=== PATIENT | female | born 1970 | race Caucasian/White ===

== ENCOUNTER 2019-03-17 09:10 | Emergency (ER) | payer OTHER ==
[2019-03-17 09:51] LABS: Absolute Monocytes 0.5 K/uL (0.1-1.3); Absolute Neutrophil 5.7 K/uL (1.8-8.0); Basophils % 0.7 % (0-1.3); Eosinophils % 4.7 % (0-4.4); Hematocrit 36.7 % (36.0-45.0); Lymphocytes % 30.9 % (15.3-44.8); MPV 8.8 fL (7.6-11.3); Monocytes % 5.1 % (3.3-12.3); RBC Red Blood Cell Count 4.01 M/uL (3.86-4.86)
[2019-03-17 10:45] LABS: BUN Blood Urea Nitrogen 11 mg/dL (7-18); Bicarbonate 22 mmol/L (21-32); Glucose Level 92 mg/dL (74-106); Magnesium 1.8 mg/dL (1.8-2.4); NT PRO-BNP 47 pg/mL (<125); Potassium 3.4 mmol/L (3.5-5.1); Sodium Level 139 mmol/L (136-145); Troponin (Emerg Dept Use Only) < 0.02 ng/mL (0.0-0.045)
--- NOTE | 2019-03-17 10:59 | RAD REPORT ---
EXAM DESCRIPTION: RAD - Chest Single View - 03/17/2019 10:29 am CLINICAL HISTORY: DYSPNEA Chest pain. COMPARISON: CHEST SINGLE VIEW dated 01/13/2014; CHEST PA AND LAT 2 VIEW dated 05/19/2013; CHEST SINGLE VIEW dated 10/24/2011 FINDINGS: Portable technique limits examination quality. The lungs are grossly clear. The heart is normal in size. No displaced fractures. IMPRESSION: No acute intrathoracic process suspected.
--- NOTE | 2019-03-17 11:10 | ER ---
Nurse's Notes [facility] Name: Kaley Gaines Age: 48 yrs Sex: Female : 1970 Arrival Date: 03/17/2019 Time: 09:13 Bed 17 Private MD: Dimple Drummond Diagnosis: Dyspnea Presentation: 03/17 09:13 Presenting complaint: Patient states: was diagnosed with sinus infection at urgent care aa5 and completed Azithromycin on Saturday but SOB has not improved. Pt also reports mid-sternal chest pain and to right lateral aspect of chest when taking a deep breath. Pt reports cough on and off. 09:13 Transition of care: patient was not received from another setting of care. aa5 09:13 Method Of Arrival: Ambulatory aa 09:13 Onset of symptoms was February 2019. Risk Assessment: Do you want to hurt yourself or aa5 someone else? Patient reports no desire to harm self or others. Initial Sepsis Screen: Does the patient meet any 2 criteria? No. Patient's initial sepsis screen is negative. Does the patient have a suspected source of infection? No. Patient's initial sepsis screen is negative. Care prior to arrival: None. 09:13 Acuity: YVONNE 3 aa5 Triage Assessment: 09:35 General: Appears in no apparent distress. uncomfortable, Behavior is calm, cooperative, hj appropriate for age. Respiratory: Reports shortness of breath Onset: The symptoms/episode began/occurred the patient has mild shortness of breath. 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 - Social history:: Smoking status: Patient/guardian denies using tobacco. - Ebola Screening: : No symptoms or risks identified at this time. Screenin:30 Abuse screen: Denies threats or abuse. Denies injuries from another. Nutritional hj screening: No deficits noted. Tuberculosis screening: No symptoms or risk factors identified. Fall Risk None identified. Assessment: 09:35 Pain: Complains of pain in chest. Cardiovascular: Rhythm is regular. Respiratory: hj Airway is patent Respiratory effort is even, unlabored, Respiratory pattern is regular, symmetrical, Breath sounds are clear. 09:35 General: Appears in no apparent distress. uncomfortable, Behavior is calm, cooperative, hj appropriate for age. Neuro: Level of Consciousness is awake, alert, obeys commands, Oriented to person, place, time, situation, Appropriate for age. GI: No signs and/or symptoms were reported involving the gastrointestinal system. : No signs and/or symptoms were reported regarding the genitourinary system. EENT: No signs and/or symptoms were reported regarding the EENT system. Derm: No signs and/or symptoms reported regarding the dermatologic system. Musculoskeletal: No signs and/or symptoms reported regarding the musculoskeletal system. 11:04 Reassessment: Patient and/or family updated on plan of care and expected duration. Pain hj level reassessed. Patient is alert, oriented x 3, equal unlabored respirations, skin warm/dry/pink. awaiting results and POC;. 11:22 Reassessment: for D/C;. hj Vital Signs: 09:15 BP 152 / 87; Pulse 96; Resp 16 S; Temp 98.3(O); Pulse Ox 100% on R/A; Weight 94.8 kg aa5 (R); Height 5 ft. 6 in. (167.64 cm) (R); Pain 6/10; 10:30 BP 128 / 67; Pulse 89; Resp 18; Pulse Ox 100% on R/A; hj 09:15 Body Mass Index 33.73 (94.80 kg, 167.64 cm) aa5 ED Course: 09:13 Patient arrived in ED. mr 09:13 Dimple Drummond is Private Physician. mr 09:13 Arm band placed on Patient placed in an exam room, on a stretcher. aa5 09:15 [facility] kb 09:15 Giorgi Peoples MD is Attending Physician. kb 09:20 Rich Vinson RN is Primary Nurse. hj 09:27 Triage completed. aa5 09:35 Patient has correct armband on for positive identification. Placed in gown. Bed in low hj position. Call light in reach. Side rails up X 1. 09:35 Initial lab(s) drawn, by me, sent to lab. Inserted saline lock: 22 gauge in left hj antecubital area, using aseptic technique. Blood collected. 10:29 XRAY Chest (1 view) In Process Unspecified. EDMS 11:22 No provider procedures requiring assistance completed. IV discontinued, intact, hj bleeding controlled, No redness/swelling at site. Pressure dressing applied. Administered Medications: 11:05 Drug: Albuterol 2.5 mg Route: Inhalation; hj 11:22 Follow up: Response: No adverse reaction; Wheezing diminished hj Outcome: 11:09 Discharge ordered by MD. baca 11:23 Discharged to home ambulatory. 11:23 Condition: stable 11:23 Discharge instructions given to patient, Instructed on discharge instructions, follow up and referral plans. medication usage, Demonstrated understanding of instructions, follow-up care, medications, Prescriptions given X 1. 11:27 Patient left the ED. Signatures: Dispatcher [employer] EDMS Kary Hernandez, MARILINC INFORMATION TECHNOLOGY INSTRUCTOR-Emelyn Clayton Perez, Angela, RN RN aa5 Rich Vinson RN RN hj
--- NOTE | 2019-03-17 11:10 | EDPHYS ---
Physician Documentation [facility] Name: Kaley Gaines Age: 48 yrs Sex: Female : 1970 Arrival Date: 03/17/2019 Time: 09:13 Bed 17 Private MD: Dimple Drummond ED Physician Giorgi Peoples HPI: 03/17 11:06 This 48 yrs old Female presents to ER via Ambulatory with complaints of kb Shortness Of Breath. 11:07 The patient has shortness of breath while exercising. Onset: The symptoms/episode kb began/occurred 10 day(s) ago. Duration: The symptoms are intermittent. The patient's shortness of breath is aggravated by exertion. Associated signs and symptoms: The patient has no apparent associated signs or symptoms. Severity of symptoms: At their worst the symptoms were moderate in the emergency department the symptoms are unchanged. The patient has not experienced similar symptoms in the past. The patient has been recently seen at an urgent care, last week, for similar complaints, was given a prescription for antibiotics. Pt reports shortness of breath that started 10 days ago. Seen at and given zithromax. Completed course, but still having symptoms. States she was at PT, riding a bike and got winded after 7 minutes so she came in.. 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 - Social history:: Smoking status: Patient/guardian denies using tobacco. - Ebola Screening: : No symptoms or risks identified at this time. ROS: 11:06 Constitutional: Negative for fever, chills, and weight loss, Cardiovascular: Negative kb for chest pain, palpitations, and edema, Abdomen/GI: Negative for abdominal pain, nausea, vomiting, diarrhea, and constipation, Back: Negative for injury and pain, MS/Extremity: Negative for injury and deformity, Skin: Negative for injury, rash, and discoloration, Neuro: Negative for headache, weakness, numbness, tingling, and seizure. 11:06 Respiratory: Positive for dyspnea on exertion, shortness of breath, Negative for cough, hemoptysis, orthopnea, pleurisy, sputum production, wheezing. Exam: 10:01 Constitutional: This is a well developed, well nourished patient who is awake, alert, kb and in no acute distress. Head/Face: Normocephalic, atraumatic. ENT: Nares patent. No nasal discharge, no septal abnormalities noted. Tympanic membranes are normal and external auditory canals are clear. Oropharynx with no redness, swelling, or masses, exudates, or evidence of obstruction, uvula midline. Mucous membranes moist. Neck: Trachea midline, no thyromegaly or masses palpated, and no cervical lymphadenopathy. Supple, full range of motion without nuchal rigidity, or vertebral point tenderness. No Meningismus. Chest/axilla: Normal chest wall appearance and motion. Nontender with no deformity. No lesions are appreciated. Cardiovascular: Regular rate and rhythm with a normal S1 and S2. No gallops, murmurs, or rubs. Normal PMI, no JVD. No pulse deficits. Respiratory: Lungs have equal breath sounds bilaterally, clear to auscultation and percussion. No rales, rhonchi or wheezes noted. No increased work of breathing, no retractions or nasal flaring. Abdomen/GI: Soft, non-tender, with normal bowel sounds. No distension or tympany. No guarding or rebound. No evidence of tenderness throughout. Skin: Warm, dry with normal turgor. Normal color with no rashes, no lesions, and no evidence of cellulitis. MS/ Extremity: Pulses equal, no cyanosis. Neurovascular intact. Full, normal range of motion. Neuro: Awake and alert, GCS 15, oriented to person, place, time, and situation. Cranial nerves II-XII grossly intact. Motor strength 5/5 in all extremities. Sensory grossly intact. Cerebellar exam normal. Normal gait. 10:01 ECG was reviewed by the Attending Physician. Vital Signs: 09:15 BP 152 / 87; Pulse 96; Resp 16 S; Temp 98.3(O); Pulse Ox 100% on R/A; Weight 94.8 kg aa5 (R); Height 5 ft. 6 in. (167.64 cm) (R); Pain 6/10; 10:30 BP 128 / 67; Pulse 89; Resp 18; Pulse Ox 100% on R/A; hj 09:15 Body Mass Index 33.73 (94.80 kg, 167.64 cm) aa5 MDM: 09:17 Patient medically screened. kb 11:06 Data reviewed: vital signs, nurses notes. Data interpreted: Pulse oximetry: on room air kb is 100 %. Interpretation: normal. Counseling: I had a detailed discussion with the patient and/or guardian regarding: the historical points, exam findings, and any diagnostic results supporting the discharge/admit diagnosis, lab results, radiology results, the need for outpatient follow up, a family practitioner, to return to the emergency department if symptoms worsen or persist or if there are any questions or concerns that arise at home. 03/17 09:21 Order name: Basic Metabolic Panel; Complete Time: 10:50 kb 03/17 09:21 Order name: CBC with Diff; Complete Time: 09:53 kb 03/17 09:21 Order name: Magnesium; Complete Time: 10:50 kb 03/17 09:21 Order name: NT PRO-BNP; Complete Time: 10:50 kb 03/17 09:21 Order name: Troponin (emerg Dept Use Only); Complete Time: 10:50 kb 03/17 09:21 Order name: D-Dimer; Complete Time: 10:14 kb 03/17 09:21 Order name: XRAY Chest (1 view); Complete Time: 11:04 kb 03/17 09:21 Order name: EKG; Complete Time: 09:23 kb 03/17 09:21 Order name: Cardiac monitoring; Complete Time: 09:24 kb 03/17 09:21 Order name: EKG - Nurse/Tech; Complete Time: 09:42 kb 03/17 09:21 Order name: IV Saline Lock; Complete Time: 09:43 kb 03/17 09:21 Order name: Labs collected and sent; Complete Time: 09:43 kb 03/17 09:21 Order name: O2 Per Protocol; Complete Time: 09:25 kb 03/17 09:21 Order name: O2 Sat Monitoring; Complete Time: 09:25 kb EC:01 Rate is 85 beats/min. Rhythm is regular. QRS Coram is Normal. HI interval is normal at kb 124 msec. QRS interval is normal at 72 msec. QT interval is normal at 372 msec. Interpreted by me. Reviewed by me. Administered Medications: 11:05 Drug: Albuterol 2.5 mg Route: Inhalation; hj 11:22 Follow up: Response: No adverse reaction; Wheezing diminished hj Disposition: 11:57 Co-signature as Attending Physician, Giorgi Peoples MD. rn Disposition: 03/17/19 11:09 Discharged to Home. Impression: Dyspnea. - Condition is Stable. - Discharge Instructions: Shortness of Breath, [id number]. - Prescriptions for Albuterol Sulfate 90 mcg/actuation - inhale 1-2 puff by INHALATION route every 4-6 hours; 1 Inhaler. - Medication Reconciliation Form, Thank You Letter, Antibiotic Education, Prescription Opioid Use, Work release form form. - Follow up: Private Physician; When: 2 - 3 days; Reason: Recheck today's complaints, Continuance of care, Re-evaluation by your physician. Follow up: Emergency Department; When: As needed; Reason: Worsening of condition. Signatures: Dispatcher [employer] EDMS Kary Hernandez, HEAD PUMPER-C HEAD PUMPER-Ckb Giorgi Peoples MD MD rn Calderon, Audri, RN RN aa5 Rich Vinson RN RN hj Corrections: (The following items were deleted from the chart) 11:27 11:09 03/17/2019 11:09 Discharged to Home. Impression: Dyspnea. Condition is Stable. hj Forms are Medication Reconciliation Form, Thank You Letter, Antibiotic Education, Prescription Opioid Use. Follow up: Private Physician; When: 2 - 3 days; Reason: Recheck today's complaints, Continuance of care, Re-evaluation by your physician. Follow up: Emergency Department; When: As needed; Reason: Worsening of condition. kb
[2019-03-17] MEDS ORDERED: ALBUTEROL 2.5 MG/3 ML NEB SOL ONE (11:21)
--- NOTE | 2019-03-17 13:25 | EKG ---
Test Date: 2019-03-17 Test Time: 09:43:06 Recycling Technician: ELIUD MEASUREMENT RESULTS: Intervals: Rate: 85 CA: 124 QRSD: 72 QT: 372 QTc: 442 [place]: P: 30 CA: 124 QRS: -11 T: 8 INTERPRETIVE STATEMENTS: Normal sinus rhythm Cannot rule out Anterior infarct, age undetermined Abnormal ECG Compared to ECG 01/13/2014 10:57:05 Myocardial infarct finding now present Electronically Signed On 03-17-19 13:24:47 CDT by Ildefonso Estrada
== END 2019-03-17 11:27 | disposition home or self-care (01) ==
LOC: ER 09:10
DX: R06.00 Dyspnea, unspecified (principal)
CPT/HCPCS: 36415; 71045; 80048; 83735; 83880; 84484; 85025; 85379; 93005; 99284